=== PATIENT | female | born 1975 | race American Indian/Alaskan Native ===

== ENCOUNTER 2022-09-20 22:33 | Emergency (ER) | payer OTHER ==
[~2022-09-20] VITALS: Ht 162.6 cm; Wt 82.0 kg
[~2022-09-20 22:33] MED LIST: IRON325 M1 PO; MULTI VITAMIN1 EACH PO; ULTRAM50 MG PO
[2022-09-20 23:18] LABS: BILIRUBIN, URINE NEGATIVE (negative); BLOOD/HGB, URINE LARGE (Negative); KETONE, URINE TRACE (Negative); LEUK ESTERASE, URINE NEGATIVE (negative); NITRITE, URINE POSITIVE (negative)
[2022-09-20 23:19] LABS: EPITHELIAL CELLS, URINE SQUAMOUS 2+ /lpf (0-1+); RED BLOOD CELLS, URINE >50 /hpf (0-5)
[2022-09-20 23:20] LABS: BACTERIA, URINE 3+ /hpf (negative); CASTS, URINE NONE SEEN \\lpf; CRYSTALS, URINE NONE SEEN (0-1+)
[2022-09-20 23:21] LABS: REFLEX CULTURE, URINE No (No)
[2022-09-20 23:33] LABS: EOSINOPHILS 4.1 % (0-6); HEMATOCRIT 26.2 % (35.0-50.0); LYMPHOCYTES 16.8 % (24-44); MCH 21.3 (27-36); MCHC 30.4 g/dl (30-36); MCV 70.2 fl (81-99); MONOCYTES 5.2 % (0-12); NEUTROPHILS 71.9 % (39-80); PLATELET COUNT 357 K/uL (140-440); RBC 3.73 M/ul (4.3-5.7)
[2022-09-20 23:38] LABS: ALBUMIN 3.8 g/dL (3.4-5.0); ALBUMIN/GLOBULIN RATIO 0.93 (1.1-2.4); ANION GAP 10.8 (7-21); BILIRUBIN, TOTAL 0.2 ng/dL (0.2-1.0); BUN/CREATININE RATIO 18.08 (6.0-28.6); CALCIUM 9.2 mg/dL (8.5-10.1); CREATININE, SERUM 0.94 mg/dL (0.55-1.02); POTASSIUM 3.8 mmol/L (3.5-5.1); PROTEIN, TOTAL 7.9 g/dL (6.4-8.2)
[2022-09-20 23:59] LABS: ABO O; ANTIBODY SCREEN NEGATIVE; RH POSITIVE
[2022-09-21] MEDS ORDERED: IRON325 M1 PO ×2 (01:08→01:10)
[2022-09-21] MEDS ORDERED: MACROBID 100 M100 MG PO ×2 (01:09→01:10)
[2022-09-21 01:39] VITALS: BP 123/74
[2022-09-22 18:04] LABS: IRON BINDING CAPACITY TOTAL 445 ug/dL (240-450); IRON,SERUM OR PLASMA 13 ug/dL (28-170); TRANSFERRIN SATURATION 3 %sat (20-50)
== END 2022-09-21 01:39 | disposition home or self-care (01) ==
LOC: ED 22:33
PROVIDERS: Internal Medicine
DX: N92.0 Excessive and frequent menstruation with regular cycle (principal); D50.9 Iron deficiency anemia, unspecified; D25.9 Leiomyoma of uterus, unspecified; N39.0 Urinary tract infection, site not specified; F17.200 Nicotine dependence, unspecified, uncomplicated; Z88.5 Allergy status to narcotic agent
CPT/HCPCS: 36415; 76830; 76856; 80053; 81001; 83550; 84703; 85025; 85060; 86850; 86900; 86901; 96374; 96375; 99284-25; J1885; J3010; J7121

== ENCOUNTER 2022-09-25 18:00 | Emergency (ER) | payer OTHER | END 2022-09-25 23:49 | disposition home or self-care (01) | LOC: ED 18:00 | DX: S09.90XA Unspecified injury of head, initial encounter (principal); Y04.8XXA Assault by other bodily force, initial encounter; F43.20 Adjustment disorder, unspecified; F17.200 Nicotine dependence, unspecified, uncomplicated; Z79.899 Other long term (current) drug therapy ==